=== PATIENT | male | born 1985 | race Caucasian/White ===

== ENCOUNTER 2025-05-13 12:00 | Emergency (ER) | payer MEDICAID ==
[2025-05-13 12:51] LABS: BASOPHILS ABSOLUTE AUTO 0.1 K/mm3 (0.0-0.2); BASOPHILS PERCENT AUTO 1.5 % (0.0-1.0); EOSINOPHILS ABSOLUTE AUTO 0.2 K/mm3 (0.0-0.4); EOSINOPHILS PERCENT AUTO 2.5 % (0.0-6.0); IMMATURE GRAN ABSOLUTE AUTO 0.05 K/mm3 (0.00-0.05); IMMATURE GRAN PERCENT AUTO 0.6 % (0.0-0.4); LYMPHOCYTES ABSOLUTE AUTO 1.7 K/mm3 (1.0-4.8); LYMPHOCYTES PERCENT AUTO 20.0 % (24.0-44.0); MEAN PLATELET VOLUME 12.7 fl (9.4-12.4); MONOCYTES ABSOLUTE AUTO 1.1 K/mm3 (0.0-0.8); MONOCYTES PERCENT AUTO 12.6 % (0.0-8.0); NEUTROPHILS ABSOLUTE AUTO 5.4 K/mm3 (1.8-7.7); NEUTROPHILS PERCENT AUTO 62.8 % (41.0-71.0); NRBC ABSOLUTE 0.00 (0.00-0.02); NRBC PERCENT 0.0 % (0.0-0.2); PLATELET COUNT,PLT 181 K/mm3 (150-400); RED BLOOD CELL COUNT 5.15 M/mm3 (4.52-5.90); WHITE BLOOD CELL COUNT,WBC 8.63 K/mm3 (3.9-11.3)
[2025-05-13 13:14] LABS: A/G RATIO 0.8 (1-2); ALANINE AMINOTRANSFERASE,ALT 36.0 U/L (16-63); ASPARTATE AMNIOTRANSFERASE,AST 14.0 U/L (15-37); BILIRUBIN TOTAL 0.3 mg/dL (0.2-1.0); BLOOD UREA NITROGEN,BUN 19.0 mg/dL (7-18); CARBON DIOXIDE,CO2 26.0 mEq/L (21-32); CHLORIDE,CL 98.0 mEq/L (98-107); CREATININE 1.0 mg/dL (0.7-1.3); EST CRCL DRUG DOSING (CG) 112.08 mL/min; ESTIMATED GFR 98.0 mL/min (>60); POTASSIUM,K 4.8 mEq/L (3.5-5.1); PROTEIN TOTAL,TP 7.5 g/dl (6.4-8.2); SODIUM,NA 131.0 mEq/L (136-145)
[2025-05-13 13:18] LABS: GLUCOSE RANDOM 480.0 mg/dL (70-99)
[2025-05-13] MEDS: Insulin Lispro 100 Unit/ML 3 ML KwikPen SUBCUT ONE ×2 (13:30→14:51)
== END 2025-05-13 15:25 | disposition home or self-care (01) ==
LOC: JD.ED 12:00
DX: E11.621 Type 2 diabetes mellitus with foot ulcer (principal); L97.419 Non-pressure chronic ulcer of right heel and midfoot with unspecified severity; E11.65 Type 2 diabetes mellitus with hyperglycemia; G62.9 Polyneuropathy, unspecified; I10 Essential (primary) hypertension; I25.10 Atherosclerotic heart disease of native coronary artery without angina pectoris; E78.00 Pure hypercholesterolemia, unspecified; Z87.891 Personal history of nicotine dependence; Z79.4 Long term (current) use of insulin; Z79.899 Other long term (current) drug therapy
CPT/HCPCS: 36415; 80053; 83036; 85025; 86140; 99284; A9270-GY

== ENCOUNTER 2025-05-28 08:35 | Emergency (ER) | payer MEDICAID ==
[2025-05-28] MEDS ORDERED: Naloxone 0.4 MG/ML SDV IVPUSH PRN (08:40)
[2025-05-28] MEDS ORDERED: Ondansetron 4 MG/2 ML SDV IVPUSH ONE ×2 (08:49)
[2025-05-28] MEDS: Ondansetron 4 MG/2 ML SDV IVPUSH ONE (08:57)
[2025-05-28 08:59] LABS: BASOPHILS ABSOLUTE AUTO 0.1 K/mm3 (0.0-0.2); BASOPHILS PERCENT AUTO 0.5 % (0.0-1.0); EOSINOPHILS ABSOLUTE AUTO 0.0 K/mm3 (0.0-0.4); EOSINOPHILS PERCENT AUTO 0.0 % (0.0-6.0); IMMATURE GRAN ABSOLUTE AUTO 0.08 K/mm3 (0.00-0.05); IMMATURE GRAN PERCENT AUTO 0.6 % (0.0-0.4); LYMPHOCYTES ABSOLUTE AUTO 0.8 K/mm3 (1.0-4.8); LYMPHOCYTES PERCENT AUTO 5.9 % (24.0-44.0); MEAN PLATELET VOLUME 12.6 fl (9.4-12.4); MONOCYTES ABSOLUTE AUTO 0.3 K/mm3 (0.0-0.8); MONOCYTES PERCENT AUTO 2.3 % (0.0-8.0); NEUTROPHILS ABSOLUTE AUTO 12.8 K/mm3 (1.8-7.7); NEUTROPHILS PERCENT AUTO 90.7 % (41.0-71.0); NRBC ABSOLUTE 0.00 (0.00-0.02); NRBC PERCENT 0.0 % (0.0-0.2); PLATELET COUNT,PLT 249 K/mm3 (150-400); RED BLOOD CELL COUNT 5.94 M/mm3 (4.52-5.90); WHITE BLOOD CELL COUNT,WBC 14.14 K/mm3 (3.9-11.3)
[2025-05-28 09:31] LABS: A/G RATIO 0.8 (1-2); ALANINE AMINOTRANSFERASE,ALT 33.0 U/L (16-63); ASPARTATE AMNIOTRANSFERASE,AST 18.0 U/L (15-37); BILIRUBIN TOTAL 0.8 mg/dL (0.2-1.0); BLOOD UREA NITROGEN,BUN 9.0 mg/dL (7-18); CARBON DIOXIDE,CO2 21.0 mEq/L (21-32); CHLORIDE,CL 94.0 mEq/L (98-107); CREATININE 1.1 mg/dL (0.7-1.3); EST CRCL DRUG DOSING (CG) 101.89 mL/min; ESTIMATED GFR 88.0 mL/min (>60); POTASSIUM,K 4.0 mEq/L (3.5-5.1); PROTEIN TOTAL,TP 8.8 g/dl (6.4-8.2); SODIUM,NA 134.0 mEq/L (136-145)
[2025-05-28 09:45] LABS: GLUCOSE RANDOM 497.0 mg/dL (70-99)
[2025-05-28 09:46] LABS: ETHANOL BLOOD MEDICAL 0.0 gm% (0.00)
[2025-05-28] MEDS: Insulin Regular, Human 100 Units/ML 10 ML Vial IV STA (10:06)
[2025-05-28 10:20] LABS: APPEARANCE,URINE CLEAR (Clear); GLUCOSE,URINE 2+ (Negative); OCCULT BLOOD,URINE 1+ (Negative)
[2025-05-28 10:31] LABS: BUPRENORPHINE SCREEN,URINE NEGATIVE (CUTOFF=10); METHADONE SCREEN, URINE NEGATIVE (CUT0FF=200); METHAMPHETAMINES SCREEN, URINE NEGATIVE (CUTOFF=500); OXYCODONE SCREEN,URINE NEGATIVE (CUT0FF=100); THC SCREEN,URINE 20 NG/ML PRESUMPTIVE POSITIVE (CUTOFF=50)
[2025-05-28 10:34] LABS: AMPHETAMINES SCREEN, URINE NEGATIVE (CUTOFF=500)
[2025-05-28] MEDS: LORazepam 2 MG/ML SDV IVPUSH STA (11:01)
[2025-05-28 11:13] LABS: BASE EXCESS ARTERIAL -2.2 (-2-2.0); BICARBONATE,ARTERIAL 21.6 meq/L (22.0-26.0); O2 SATURATION ARTERIAL 97.7 % (96.0-97.0); PCO2 ARTERIAL 34.0 mmHg (35.0-45.0); PO2 ARTERIAL 81.0 mmHg (80.0-100.0)
[2025-05-28] MEDS: Sodium Chloride 0.9% 10 ML Syringe FLUSH ONE (11:23)
[2025-05-28] MEDS: Iopamidol 612 MG/ML 100 ML Bottle IVPUSH ONE (11:23)
[2025-05-28] MEDS: Acetaminophen/HYDROcodone 325-5 MG Tab PO ONE (14:34)
== END 2025-05-28 14:30 | disposition home or self-care (01) ==
LOC: JD.ED 08:35
DX: R10.11 Right upper quadrant pain (principal); R10.13 Epigastric pain; E11.42 Type 2 diabetes mellitus with diabetic polyneuropathy; I10 Essential (primary) hypertension; E66.9 Obesity, unspecified; E78.00 Pure hypercholesterolemia, unspecified; I25.10 Atherosclerotic heart disease of native coronary artery without angina pectoris; Z88.0 Allergy status to penicillin; Z79.4 Long term (current) use of insulin; Z79.899 Other long term (current) drug therapy; Z68.32 Body mass index [BMI] 32.0-32.9, adult
CPT/HCPCS: 36415; 36600; 74177; 76705; 80053; 80306; 80307; 81001; 82010; 82803; 83036; 83690; 83735; 85025; 96361; 96365; 96375; 96376; 99284; A9270; J1171; J1308; J1815; J2060; J2405; J2470; J2765; J3475; J7030; Q9967

== ENCOUNTER 2025-06-01 12:08 | Emergency (ER) | payer MEDICAID ==
[2025-06-01] MEDS: Ondansetron 4 MG/2 ML SDV IVPUSH ONE (14:39)
[2025-06-01 14:59] LABS: BASOPHILS ABSOLUTE AUTO 0.1 K/mm3 (0.0-0.2); BASOPHILS PERCENT AUTO 0.6 % (0.0-1.0); EOSINOPHILS ABSOLUTE AUTO 0.0 K/mm3 (0.0-0.4); EOSINOPHILS PERCENT AUTO 0.1 % (0.0-6.0); IMMATURE GRAN ABSOLUTE AUTO 0.06 K/mm3 (0.00-0.05); IMMATURE GRAN PERCENT AUTO 0.5 % (0.0-0.4); LYMPHOCYTES ABSOLUTE AUTO 0.9 K/mm3 (1.0-4.8); LYMPHOCYTES PERCENT AUTO 8.4 % (24.0-44.0); MEAN PLATELET VOLUME 12.6 fl (9.4-12.4); MONOCYTES ABSOLUTE AUTO 0.6 K/mm3 (0.0-0.8); MONOCYTES PERCENT AUTO 5.6 % (0.0-8.0); NEUTROPHILS ABSOLUTE AUTO 9.5 K/mm3 (1.8-7.7); NEUTROPHILS PERCENT AUTO 84.8 % (41.0-71.0); NRBC ABSOLUTE 0.00 (0.00-0.02); NRBC PERCENT 0.0 % (0.0-0.2); PLATELET COUNT,PLT 208 K/mm3 (150-400); RED BLOOD CELL COUNT 6.03 M/mm3 (4.52-5.90); WHITE BLOOD CELL COUNT,WBC 11.19 K/mm3 (3.9-11.3)
[2025-06-01] MEDS: Iopamidol 612 MG/ML 100 ML Bottle IVPUSH ONE (15:03)
[2025-06-01] MEDS: Iopamidol 612 MG/ML 30 ML SDV IVPUSH ONE (15:03)
[2025-06-01] MEDS: Sodium Chloride 0.9% 10 ML Syringe FLUSH PRN (15:03)
[2025-06-01 15:34] LABS: A/G RATIO 0.8 (1-2); ALANINE AMINOTRANSFERASE,ALT 34.0 U/L (16-63); ASPARTATE AMNIOTRANSFERASE,AST 20.0 U/L (15-37); BILIRUBIN TOTAL 1.1 mg/dL (0.2-1.0); BLOOD UREA NITROGEN,BUN 9.0 mg/dL (7-18); CARBON DIOXIDE,CO2 21.0 mEq/L (21-32); CHLORIDE,CL 96.0 mEq/L (98-107); CREATININE 1.1 mg/dL (0.7-1.3); EST CRCL DRUG DOSING (CG) 101.89 mL/min; ESTIMATED GFR 88.0 mL/min (>60); GLUCOSE RANDOM 355.0 mg/dL (70-99); POTASSIUM,K 3.7 mEq/L (3.5-5.1); PROTEIN TOTAL,TP 8.3 g/dl (6.4-8.2); SODIUM,NA 134.0 mEq/L (136-145)
[2025-06-01 15:51] LABS: APPEARANCE,URINE CLEAR (Clear); GLUCOSE,URINE 2+ (Negative); OCCULT BLOOD,URINE 1+ (Negative)
[2025-06-01 16:13] LABS: EPITHELIAL CELLS,URINE 0-5 /hpf (0-5)
[2025-06-01] MEDS: Sodium Chloride 0.9% 10 ML Syringe FLUSH ONE (17:04)
== END 2025-06-01 17:21 | disposition home or self-care (01) ==
LOC: JD.ED 12:08
DX: R10.11 Right upper quadrant pain (principal); R11.2 Nausea with vomiting, unspecified; E27.9 Disorder of adrenal gland, unspecified; I10 Essential (primary) hypertension; E66.9 Obesity, unspecified; E78.00 Pure hypercholesterolemia, unspecified; E11.9 Type 2 diabetes mellitus without complications; Z88.0 Allergy status to penicillin; Z79.4 Long term (current) use of insulin; Z79.899 Other long term (current) drug therapy
CPT/HCPCS: 36415; 74177; 74177-26; 80053; 81001; 83690; 85025; 96361; 96374; 96375; 96376; 99284-25; J1171; J2405; J2765; J7030; Q9967